=== PATIENT | female | born 1940 | race Caucasian/White ===

== ENCOUNTER 2018-03-18 10:58 | Outpatient (CLI) | payer MEDICARE, OTHER | END 2018-03-18 10:59 | disposition critical access hospital (66) | LOC: EMS 10:58 | PROVIDERS: ATTEND Surgery | DX: R10.9 Unspecified abdominal pain (principal) | CPT/HCPCS: A0425; A0427 ==

== ENCOUNTER 2018-03-18 11:19 | Emergency (ER) | payer MEDICARE, OTHER ==
[2018-03-18 11:44] LABS: BILIRUBIN,URINE NEGATIVE (NEGATIVE); GLUCOSE, URINE (UA) NEGATIVE (NEGATIVE); KETONES,URINE (UA) NEGATIVE (NEGATIVE); LEUKOCYTE ESTERASE, URINE NEGATIVE (NEGATIVE); NITRITE,URINE NEGATIVE (NEGATIVE); OCCULT BLOOD,URINE NEGATIVE (NEGATIVE); PROTEIN,URINE NEGATIVE (NEGATIVE); UROBILINOGEN,URINE 0.2 (NORMAL) E.U./dL (NORMAL)
[2018-03-18 11:45] LABS: CLARITY,URINE CLOUDY (CLEAR)
[2018-03-18 11:52] LABS: AMORPHOUS SEDIMENT,UR Marked /LPF; BACTERIA,URINE None Seen /HPF (None Seen); RBC,URINE None Seen /HPF (0-5); SQUAMOUS EPITHELIAL CELL,UR NONE SEEN (<= Few)
[2018-03-18 11:58] LABS: BASOPHILS # (AUTO) 0.1 10^3/uL (0.0-0.1); BASOPHILS % (AUTO) 0.6 %; EOSINOPHILS # (AUTO) 0.1 10^3/uL (0.0-0.7); EOSINOPHILS % (AUTO) 0.6 %; HGB - HEMOGLOBIN 14.6 g/dL (12.0-16.0); LYMPHOCYTES # (AUTO) 1.7 10^3/uL (1.5-3.5); LYMPHOCYTES % (AUTO) 18.6 %; MEAN CORPUSCULAR HEMOGLOBIN 32.2 pg (27.0-31.0); MEAN CORPUSCULAR HGB CONC 33.5 g/dL (32.0-36.0); MEAN CORPUSCULAR VOLUME 96.2 fL (81.0-99.0); MEAN PLATELET VOLUME 8.9 fL (7.9-10.8); MONOCYTES # (AUTO) 0.6 10^3/uL (0.0-1.0); NEUTROPHILS # (AUTO) 6.7 10^3/uL (1.5-6.6); NEUTROPHILS % (AUTO) 73.2 %; PLT - PLATELET COUNT 196 10^3/uL (130-450); RED BLOOD COUNT 4.54 10^6/uL (4.20-5.40); RED CELL DISTRIBUTION WIDTH 13.5 % (12.0-15.0); WHITE BLOOD COUNT 9.2 x10^3/uL (4.8-10.8)
--- NOTE | 2018-03-18 12:14 | ED Physician Documentation ---
PD HPI ABD PAIN - Stated complaint Stated Complaint: ABD PX - Chief complaint Chief Complaint: Abd Pain - History obtained from History obtained from: Patient - History of Present Illness Timing - onset: Today (this morning about 7-8 am, onset mid to RUQ pain that is now RUQ/epigastric. Feels similar to gallbladder that she had removed 2 months ago (infected and had ductal stone with pancreatitis as well; had CCY then ERCP next day).) Timing - duration: Hours Timing - details: Abrupt onset, Still present Quality: Aching, Stabbing, Pain Location: RUQ, Epigastric Radiation: Upper back Improved by: No: Laying still, Position Worsened by: Eating, Moving, Palpation. No: Position Associated symptoms: Nausea, Loss of appetite. No: Fever, Vomiting, Diarrhea, Constipation, Melena Similar symptoms before: Diagnosis (gallbladder problems.) Recently seen: Surgery (2 months ago at [facility] with CCY due to acute cholecystitis and pancreatitis.) Review of Systems Constitutional: denies: Fever, Chills, Myalgias Nose: denies: Rhinorrhea / runny nose, Congestion Throat: denies: Sore throat Cardiac: denies: Chest pain / pressure, Palpitations Respiratory: denies: Cough GI: reports: Abdominal Pain, Nausea. denies: Vomiting, Constipation, Diarrhea : denies: Dysuria, Frequency, Discharge Skin: denies: Rash PD PAST MEDICAL HISTORY - Past Medical History Past Medical History: Yes Cardiovascular: Hypertension, High cholesterol, Atrial flutter, Atrial fibrillation - Past Surgical History Past Surgical History: Yes General: Cholecystectomy - Present Medications Home Medications: Ambulatory Orders Medication Instructions Recorded Confirmed Apixaban [Eliquis] 10 mg PO DAILY 03/18/18 Atorvastatin Calcium 03/18/18 Carvedilol 03/18/18 Famotidine [Pepcid] 20 mg PO ONCE #30 tablet 03/18/18 Latanoprost [Xalatan] 03/18/18 Lidocaine Viscous 2% [Xylocaine 5 ml PO Q4H PRN #1 bottle 03/18/18 Viscous 2%] Lorazepam [Ativan] 03/18/18 Ondansetron Odt [Zofran] 4 mg TL Q6H PRN #15 tablet 03/18/18 Spironolact/Hydrochlorothiazid 03/18/18 [Spironolactone-Hctz 25-25 Tab] Tramadol HCl 50 mg PO Q6H PRN #20 tablet 03/18/18 Valacyclovir HCl [Valtrex] 03/18/18 - Allergies Allergies/Adverse Reactions: Allergies Allergy/AdvReac Type Severity Reaction Status Date / Time No Known Drug Allergies Allergy Verified 03/18/18 11:27 - Social History Does the pt smoke?: No Smoking Status: Never smoker PD ED PE NORMAL - Vitals Vital signs reviewed: Yes - General General: Alert and oriented X 3, Well developed/nourished, Other (appears in pain) - HEENT HEENT: Pharynx benign - Neck Neck: Supple, no meningeal sign, No adenopathy - Cardiac Cardiac: RRR, No murmur - Respiratory Respiratory: Clear bilaterally - Abdomen Abdomen: Normal bowel sounds, Non distended, No organomegaly, Other (tender in epigastric/RUQ area. ) - Female Female : Deferred - Rectal Rectal: Deferred - Back Back: No CVA TTP - Derm Derm: Normal color, Warm and dry - Extremities Extremities: No tenderness to palpate, Normal ROM s pain - Neuro Neuro: Alert and oriented X 3, No motor deficit, Normal speech Results - Vitals Vitals: Vital Signs - 24 hr 03/18/18 03/18/18 03/18/18 11:21 14:32 15:48 Temperature 36.5 C Heart Rate 56 L 49 L 60 Respiratory 17 17 18 Rate Blood Pressure 206/92 H 149/70 H 132/71 H O2 Saturation 99 93 96 Oxygen O2 Source Room air - Labs Labs: Laboratory Tests 03/18/18 03/18/18 03/18/18 11:26 11:48 11:48 WBC 9.2 RBC 4.54 Hgb 14.6 Hct 43.7 MCV 96.2 MCH 32.2 H MCHC 33.5 RDW 13.5 Plt Count 196 MPV 8.9 Neut # 6.7 H Lymph # 1.7 [place] # 0.6 Eos # 0.1 Baso # 0.1 Absolute Nucleated RBC 0.00 Nucleated RBC % 0.0 Sodium 135 Potassium 3.5 Chloride 99 L Carbon Dioxide 27 Anion Gap 9.0 BUN 12 Creatinine 0.6 Estimated GFR (MDRD) 97 Glucose 114 H Calcium 9.7 Total Bilirubin 0.9 AST 32 ALT 27 Alkaline Phosphatase 48 Troponin I Total Protein 7.6 Albumin 4.3 Globulin 3.3 Albumin/Globulin Ratio 1.3 Lipase 23 Urine Color YELLOW Urine Clarity CLOUDY Urine pH 8.0 H Ur Specific [place] 1.020 Urine Protein NEGATIVE Urine Glucose (UA) NEGATIVE Urine Ketones NEGATIVE Urine Occult Blood NEGATIVE Urine Nitrite NEGATIVE Urine Bilirubin NEGATIVE Urine Urobilinogen 0.2 (NORMAL) Ur Leukocyte Esterase NEGATIVE Urine RBC None Seen Urine WBC 0-3 Ur Squamous Epith Cells NONE SEEN Amorphous Sediment Marked Urine Bacteria None Seen Ur Microscopic Review INDICATED Urine Culture Comments NOT INDICATED 03/18/18 11:48 WBC RBC Hgb Hct MCV MCH MCHC RDW Plt Count MPV Neut # Lymph # [place] # Eos # Baso # Absolute Nucleated RBC Nucleated RBC % Sodium Potassium Chloride Carbon Dioxide Anion Gap BUN Creatinine Estimated GFR (MDRD) Glucose Calcium Total Bilirubin AST ALT Alkaline Phosphatase Troponin I < 0.04 Total Protein Albumin Globulin Albumin/Globulin Ratio Lipase Urine Color Urine Clarity Urine pH Ur Specific [place] Urine Protein Urine Glucose (UA) Urine Ketones Urine Occult Blood Urine Nitrite Urine Bilirubin Urine Urobilinogen Ur Leukocyte Esterase Urine RBC Urine WBC Ur Squamous Epith Cells Amorphous Sediment Urine Bacteria Ur Microscopic Review Urine Culture Comments - Rads (name of study) RUQ U/S Radiology: Prelim report reviewed (mildly dilated duct c/w CCY, without blockage. ) PD MEDICAL DECISION MAKING - ED course Complexity details: reviewed results, re-evaluated patient (improved with pain meds and pain about gone. GI cocktail did seem to help some. ), considered differential (thought it would be ductal process, sinc efeeling like her gallbladder symptoms, but U/S is normal. Labs are good too. Presume gastritis/ duodenitis with location and worse with eating.), d/w patient Departure - Departure Disposition: 01 Home, Self Care Clinical Impression: Abdominal pain Qualifiers: Abdominal location: right upper quadrant Qualified Code(s): R10.11 - Right upper quadrant pain Clinical Impression: (Ruled Out): Pancreatitis Condition: Stable Record reviewed to determine appropriate education?: Yes Instructions: ED Abdominal Pain Unkn Cause, ED Gastritis Prescriptions: Famotidine [Pepcid] 20 mg PO ONCE #30 tablet Lidocaine Viscous 2% [Xylocaine Viscous 2%] 5 ml PO Q4H PRN #1 bottle PRN Reason: Pain Ondansetron Odt [Zofran] 4 mg TL Q6H PRN #15 tablet PRN Reason: Nausea / Vomiting Tramadol HCl 50 mg PO Q6H PRN #20 tablet PRN Reason: Pain Comments: Drink lots of fluids. Your tests here appear normal but do not show everything. In particular it does not show the stomach or first part of the intestine. Given the location of your pain, I assume that is what is causing your symptoms. Use famotidine acid reducing medicine daily for the next couple of weeks. He can use the lidocaine along with some antacid such as Mylanta as needed for pain. Use Tylenol if needed for worse pain and add tramadol if needed. Ondansetron if needed for nausea. Recheck with your primary care if not improved over the next several days. There may be some intermittent milder pains. Return if worse again. Discharge Date/Time: 03/18/18 15:54
[2018-03-18 12:21] LABS: ALBUMIN 4.3 g/dL (3.2-5.5); ALBUMIN/GLOBULIN RATIO 1.3 (1.0-2.2); BILIRUBIN,TOTAL 0.9 mg/dL (0.2-1.0); CALCIUM 9.7 mg/dL (8.5-10.3); CREATININE 0.6 mg/dL (0.4-1.0); TOTAL PROTEIN 7.6 g/dL (6.7-8.2)
[2018-03-18] MEDS ORDERED: LIDOCAINE VISCOUS 2% 15 ML UDC MM STA (12:32)
[2018-03-18] MEDS ORDERED: HYDROmorphone 1 MG/ML CARPUJECT IVP STA ×2 (12:32→13:52)
[2018-03-18] MEDS ORDERED: MAG HYDROX/AL HYDROX/SIMETH 30 ML UDC PO STA (12:32)
[2018-03-18] MEDS ORDERED: ONDANSETRON 4 MG/2 ML VIAL IVP STA (12:32)
[2018-03-18] MEDS ORDERED: SODIUM CHLORIDE 0.9% 1,000 ML IV ONE (12:32)
--- NOTE | 2018-03-18 14:56 | Ultrasound Report ---
RIGHT UPPER QUADRANT ULTRASOUND: 03/18/2018 CLINICAL INDICATION: Right upper quadrant pain, history of cholecystectomy 2 months ago. TECHNIQUE: Real-time scanning was performed with retail representative static images obtained. FINDINGS: The liver measures 13.7 cm. There is mild prominence of the intrahepatic biliary system. No focal parenchymal lesion is seen. The common bile duct measures 7 mm. The gallbladder is surgically absent. The right kidney measures 10 cm, and demonstrates no hydronephrosis. No free fluid is present. IMPRESSION: MILDLY PROMINENT INTRAHEPATIC BILIARY DUCTS, WITHOUT EVIDENCE OF COMMON DUCT DILATATION, STATUS POST CHOLECYSTECTOMY. TD: 03/18/2018 14:55
[2018-03-18] MEDS ORDERED: FAMOTIDINE 20 MG TABLET PO STA (15:42)
[2018-03-18 15:49] VITALS: BP 132/71
== END 2018-03-18 15:54 | disposition home or self-care (01) ==
LOC: ED 11:19
DX: R10.11 Right upper quadrant pain (principal); I10 Essential (primary) hypertension; E78.00 Pure hypercholesterolemia, unspecified; I48.91 Unspecified atrial fibrillation; I48.92 Unspecified atrial flutter; Z79.01 Long term (current) use of anticoagulants
CPT/HCPCS: 36415; 76705; 80053; 81001; 83690; 84484; 85025; 93005; 96361; 96374; 99284; A9270; J1170; 81003; 87086